=== PATIENT | female | born 1965 | race Caucasian/White ===

== ENCOUNTER 2022-06-27 17:41 | Emergency (ER) | payer OTHER ==
[2022-06-27] VITALS (7 sets, daily range): BP systolic 123–136; BP diastolic 77–84
[~2022-06-27] VITALS: Ht 160 cm; Wt 65.9 kg
== END 2022-06-27 19:10 | disposition home or self-care (01) | DRG 563 ==
LOC: ED 17:41
DX: S92.415A Nondisplaced fracture of proximal phalanx of left great toe, initial encounter for closed fracture (principal); I10 Essential (primary) hypertension; W22.09XA Striking against other stationary object, initial encounter; Y92.480 Sidewalk as the place of occurrence of the external cause